=== PATIENT | male | born 1940 | race Caucasian/White ===

== ENCOUNTER 2019-04-01 12:15 | Emergency (ER) | payer MEDICARE, BC ==
[2019-04-01 13:02] VITALS: BP 145/59
--- NOTE | 2019-04-01 13:23 | UC ---
Respiratory Complaint HPI - HPI Summary HPI Summary: cough x 2 days cough is productive with yellow sputum no runny nose, no sore throat, chest congestion / tightness + fever, chills , body / joint pain + diarrhea, no abd pain , no vomiting - History of Current Complaint Chief Complaint: UCGeneralIllness Stated Complaint: COUGH Time Seen by Provider: 04/01/19 12:55 Hx Obtained From: Patient Onset/Duration: Gradual Onset, Lasting Days - 2, Still Present Timing: Constant Severity Initially: Moderate Severity Currently: Moderate Pain Intensity: 0 Character: Cough: Productive Aggravating Factors: Exertion, Deep Breaths Alleviating Factors: Nothing Associated Signs And Symptoms: Positive: Fever, Chills. Negative: Pleuritic Chest Pain, Wheezing, Hemoptysis, Dizziness, Calf Pain, Calf Swelling, URI, Nasal Congestion - Allergies/Home Medications Allergies/Adverse Reactions: Allergies Allergy/AdvReac Type Severity Reaction Status Date / Time No Known Allergies Allergy Verified 04/01/19 13:02 Home Medications: Home Medications Atorvastatin* [Lipitor*] 20 mg PO DAILY 04/01/19 [History Confirmed 04/01/19] Losartan TAB* [Cozaar TAB*] 25 mg PO DAILY 04/01/19 [History Confirmed 04/01/19] Repaglinide TAB* [Prandin TAB*] 1 mg PO BID 04/01/19 [History Confirmed 04/01/19 ] Tadalafil [Cialis] 25 mg PO DAILY 04/01/19 [History Confirmed 04/01/19] metFORMIN* [Glucophage 1000 MG TAB *] 1,000 mg PO BID 04/01/19 [History Confirmed 04/01/19] PMH/Surg Hx/FS Hx/Imm Hx Endocrine History: Diabetes - Surgical History Surgical History: None - Family History Known Family History: Positive: Diabetes - Social History Alcohol Use: Daily Substance Use Type: None Smoking Status (MU): Former Smoker When Did the Patient Quit Smoking/Using Tobacco: 1988 Review of Systems All Other Systems Reviewed And Are Negative: Yes Constitutional: Positive: Fever, Chills, Fatigue Skin: Positive: Negative Eyes: Positive: Negative ENT: Positive: Negative Respiratory: Positive: Cough Gastrointestinal: Positive: Diarrhea Is Patient Immunocompromised?: No Physical Exam Triage Information Reviewed: Yes Appearance: Well-Appearing, No Pain Distress, Well-Nourished Vital Signs: Initial Vital Signs Temp 97.8 F 04/01/19 12:57 Pulse 79 04/01/19 12:57 Resp 18 04/01/19 12:57 BP 145/59 04/01/19 12:57 Pulse Ox 99 04/01/19 12:57 Vital Signs Reviewed: Yes Eye Exam: Normal Eyes: Positive: Conjunctiva Clear ENT: Positive: Normal ENT inspection, Hearing grossly normal, Pharynx normal. Negative: Nasal congestion, Nasal drainage Neck: Positive: Supple, Nontender, No Lymphadenopathy Respiratory: Positive: Chest non-tender, Lungs clear, Normal breath sounds Cardiovascular: Positive: RRR, No Murmur, Pulses Normal Abdominal Exam: Normal Abdomen Description: Positive: Soft Bowel Sounds: Positive: Present Skin Exam: Normal Respiratory Course/Dx - Differential Dx/Diagnosis Provider Diagnosis: Fever, Bronchitis Discharge ED - Sign-Out/Discharge Documenting (check all that apply): Patient Departure All imaging exams completed and their final reports reviewed: No Studies - Discharge Plan Condition: Stable Disposition: HOME Patient Education Materials: Fever in Adults (ED) Referrals: Fito GAYLE,Sanya Melgar [Primary Care Provider] - 7 Days - Billing Disposition and Condition Condition: STABLE Disposition: Home
[2019-04-01 13:35] LABS: Influenza A Molecular NEGATIVE (Negative); Influenza B Molecular NEGATIVE (Negative)
== END 2019-04-01 13:42 | disposition home or self-care (01) ==
LOC: UCCORT 12:15
DX: J40 Bronchitis, not specified as acute or chronic (principal); R50.9 Fever, unspecified; E11.9 Type 2 diabetes mellitus without complications; R19.7 Diarrhea, unspecified; R53.83 Other fatigue; Z79.84 Long term (current) use of oral hypoglycemic drugs; Z87.891 Personal history of nicotine dependence
CPT/HCPCS: 99201; G0463